=== PATIENT | male | born 1985 | race Caucasian/White ===

== ENCOUNTER 2025-01-12 19:50 | Observation (INO) | payer OTHER ==
[~2025-01-12] VITALS: Ht 175.2 cm; Wt 62.2 kg
[2025-01-12 19:50] VITALS: BP 130/87
[2025-01-12] MEDS ORDERED: ATENOLOL25 MG PO (19:58)
[2025-01-12] MEDS ORDERED: Albuterol Sulf/Ipratropium 3 ML VIAL NEB ONE (20:05)
[2025-01-12 20:09] LABS: BASO # 0.0 10*3/uL (0.0-0.1); BASO % 0.3 % (0.0-1.0); EOS # 0.1 10*3/uL (0.0-0.4); EOS % 2.0 % (1.0-4.0); MEAN CELL VOLUME 85.4 fl (80.0-94.0); MEAN CORPUSCULAR HGB 29.9 pg (27.0-31.0); MEAN PLATELET VOLUME 10.0 fl (9.6-12.3); MONO # 0.8 10*3/uL (0.1-1.0); MONO % 12.2 % (3.0-9.0); NEUT # 3.6 10*3/uL (2.3-7.9); NEUT % 52.2 % (47.0-73.0); NUCLEATED RED BLOOD CELL 0.0 % (0.0-0.0); NUCLEATED RED BLOOD CELL 0.0 10*3/uL (0.0-0.0); PLATELET COUNT AUTOMATED 259 10*3/uL (130-400); RED CELL DISTRI WIDTH 12.3 % (0-14.5)
[2025-01-12] MEDS ORDERED: Midazolam Hydrochloride 2 MG/2 ML VIAL IV ONE (20:15)
[2025-01-12 20:24] LABS: ACT PARTIAL THROMBO TIME 25.8 SECONDS (20.0-32.1)
[2025-01-12 20:31] LABS: BUN 12 mg/dl (9-23); SGPT/ALT 19 U/L (5-49)
[2025-01-12 22:20] LABS: URINE AMPHETAMINES Positive (1000ng/ml); URINE BARBITURATES Negative (200ng/ml); URINE BENZODIAZEPINES Positive (200ng/ml); URINE CANNABINOIDS (THC) Negative (50ng/ml); URINE COCAINE Negative (300ng/ml); URINE METHADONE Negative (300ng/ml); URINE OPIATES Negative (300ng/ml); URINE PHENCYCLIDINE Negative (25ng/ml)
[2025-01-12 23:12] LABS: CPK 82.0 U/L (34-171); MYOGLOBIN 32.0 ng/ml (16-116)
[2025-01-13 02:50] VITALS: BP 133/82
[2025-01-13] MEDS ORDERED: GABAPENTIN600 MG PO (02:54)
[2025-01-13] MEDS ORDERED: SUBOXONE 8 MG-1 EACH BC (02:54)
[2025-01-13] MEDS ORDERED: ATENOLOL50 M1 PO (02:54)
[2025-01-13] MEDS ORDERED: FAMOTIDINE20 M1 PO (02:55)
[2025-01-13] MEDS ORDERED: POTASSIUM CHLORIDE 20 MEQ TAB PO ONE (03:00)
[2025-01-13] MEDS ORDERED: SODIUM CHLORIDE 0.9% 1,000 ML IV ONE (03:25)
[2025-01-13] MEDS ORDERED: LORazepam 1 MG TAB PO PRN (03:30)
[2025-01-13 05:00] VITALS: BP 143/83; BP 143/85
[2025-01-13 07:10] LABS: BASO # 0.0 10*3/uL (0.0-0.1); BASO % 0.3 % (0.0-1.0); EOS # 0.1 10*3/uL (0.0-0.4); EOS % 1.9 % (1.0-4.0); MEAN CELL VOLUME 85.4 fl (80.0-94.0); MEAN CORPUSCULAR HGB 29.9 pg (27.0-31.0); MEAN PLATELET VOLUME 10.1 fl (9.6-12.3); MONO # 0.6 10*3/uL (0.1-1.0); MONO % 9.0 % (3.0-9.0); NEUT # 4.2 10*3/uL (2.3-7.9); NEUT % 60.8 % (47.0-73.0); NUCLEATED RED BLOOD CELL 0.0 % (0.0-0.0); NUCLEATED RED BLOOD CELL 0.0 10*3/uL (0.0-0.0); PLATELET COUNT AUTOMATED 227 10*3/uL (130-400); RED CELL DISTRI WIDTH 12.3 % (0-14.5)
[2025-01-13 07:40] LABS: BUN 10 mg/dl (9-23); LDL CHOLESTEROL 149 mg/dL (9-159)
[2025-01-13 08:00] VITALS: BP 136/92
== END 2025-01-13 09:17 | disposition left against medical advice (07) ==
LOC: ED 19:50 → EDHOLD 01-13 02:59 → 4E 01-13 02:59
PROVIDERS: Emergency Medicine; Student in an Organized Health Care Education/Training Program; ADMIT Student in an Organized Health Care Education/Training Program; ATTEND Student in an Organized Health Care Education/Training Program
DX: R07.89 Other chest pain (principal); R73.9 Hyperglycemia, unspecified; E87.6 Hypokalemia; Z53.29 Procedure and treatment not carried out because of patient's decision for other reasons; R00.0 Tachycardia, unspecified; R25.1 Tremor, unspecified; F11.21 Opioid dependence, in remission; F19.10 Other psychoactive substance abuse, uncomplicated; I10 Essential (primary) hypertension; Z79.899 Other long term (current) drug therapy; Z79.01 Long term (current) use of anticoagulants; Z79.2 Long term (current) use of antibiotics; Z90.49 Acquired absence of other specified parts of digestive tract; Z78.9 Other specified health status

== ENCOUNTER 2025-01-29 20:36 | Emergency (ER) | payer OTHER ==
[~2025-01-29] VITALS: Ht 175.2 cm; Wt 61.2 kg
[~2025-01-29 20:36] MED LIST: ATENOLOL25 MG PO; ATENOLOL50 M1 PO; FAMOTIDINE20 M1 PO; GABAPENTIN600 MG PO; SUBOXONE 8 MG-1 EACH BC
[2025-01-29 21:36] LABS: BASO # 0.0 10*3/uL (0.0-0.1); BASO % 0.4 % (0.0-1.0); EOS # 0.4 10*3/uL (0.0-0.4); EOS % 5.0 % (1.0-4.0); MEAN CELL VOLUME 88.9 fl (80.0-94.0); MEAN CORPUSCULAR HGB 29.9 pg (27.0-31.0); MEAN PLATELET VOLUME 10.1 fl (9.6-12.3); MONO # 0.8 10*3/uL (0.1-1.0); MONO % 11.3 % (3.0-9.0); NEUT # 3.1 10*3/uL (2.3-7.9); NEUT % 43.1 % (47.0-73.0); NUCLEATED RED BLOOD CELL 0.0 % (0.0-0.0); NUCLEATED RED BLOOD CELL 0.0 10*3/uL (0.0-0.0); PLATELET COUNT AUTOMATED 196 10*3/uL (130-400); RED CELL DISTRI WIDTH 12.3 % (0-14.5)
[2025-01-29 21:57] LABS: BUN 21 mg/dl (9-23); CPK 65 U/L (34-171)
[2025-01-29 22:13] LABS: URINE AMPHETAMINES Positive (1000ng/ml); URINE BARBITURATES Negative (200ng/ml); URINE BENZODIAZEPINES Negative (200ng/ml); URINE CANNABINOIDS (THC) Negative (50ng/ml); URINE COCAINE Negative (300ng/ml); URINE METHADONE Negative (300ng/ml); URINE OPIATES Negative (300ng/ml); URINE PHENCYCLIDINE Negative (25ng/ml)
[2025-01-29] MEDS ORDERED: ALPRAZolam 0.25 MG TAB PO ONE (22:45)
== END 2025-01-29 22:55 | disposition home or self-care (01) ==
LOC: ED 20:36
PROVIDERS: Emergency Medicine
DX: G47.00 Insomnia, unspecified (principal); I10 Essential (primary) hypertension; F32.A Depression, unspecified; F41.9 Anxiety disorder, unspecified; Z90.49 Acquired absence of other specified parts of digestive tract

== ENCOUNTER 2025-02-10 21:06 | Emergency (ER) | payer OTHER ==
[~2025-02-10] VITALS: Ht 175.2 cm; Wt 63.5 kg
[2025-02-10] MEDS ORDERED: ALPRAZOLAM0.5 M3 PO (21:14)
[2025-02-10] MEDS ORDERED: ZUBSOLV 5.7-1.1 EACH SL (21:14)
[2025-02-10] MEDS ORDERED: BACLOFEN20 M1 PO (21:15)
[2025-02-10] MEDS ORDERED: MIRTAZAPINE15 M2 PO (21:16)
[2025-02-10] MEDS ORDERED: SEROQUEL XR150 MG PO (21:16)
[2025-02-10] MEDS ORDERED: QELBREE200 MG PO (21:16)
[2025-02-10] MEDS ORDERED: BENZTROPINE ME0.5 MG PO (21:16)
[2025-02-10] MEDS ORDERED: LAMOTRIGINE100 MG PO (21:17)
[2025-02-10] MEDS ORDERED: FAMOTIDINE20 M1 PO (21:17)
[2025-02-10] MEDS ORDERED: GABAPENTIN800 MG PO (21:17)
[2025-02-10] MEDS ORDERED: SERTRALINE HYD100 MG PO (21:18)
[2025-02-10 22:11] LABS: BASO # 0.0 10*3/uL (0.0-0.1); BASO % 0.6 % (0.0-1.0); EOS # 0.5 10*3/uL (0.0-0.4); EOS % 7.0 % (1.0-4.0); MEAN CELL VOLUME 88.3 fl (80.0-94.0); MEAN CORPUSCULAR HGB 29.5 pg (27.0-31.0); MEAN PLATELET VOLUME 10.3 fl (9.6-12.3); MONO # 0.7 10*3/uL (0.1-1.0); MONO % 9.4 % (3.0-9.0); NEUT # 2.1 10*3/uL (2.3-7.9); NEUT % 29.0 % (47.0-73.0); NUCLEATED RED BLOOD CELL 0.0 % (0.0-0.0); NUCLEATED RED BLOOD CELL 0.0 10*3/uL (0.0-0.0); PLATELET COUNT AUTOMATED 195 10*3/uL (130-400); RED CELL DISTRI WIDTH 12.4 % (0-14.5)
[2025-02-10 22:24] LABS: ACT PARTIAL THROMBO TIME 24.0 SECONDS (20.0-32.1)
[2025-02-10 22:35] LABS: BUN 7 mg/dl (9-23); CPK 71 U/L (34-171); SGPT/ALT 18 U/L (5-49)
[2025-02-10] MEDS ORDERED: SODIUM CHLORIDE 0.9% 1,000 ML IV ONE (22:35)
[2025-02-10 22:39] LABS: ETHYL ALCOHOL < 3.0 mg/dl (<3)
[2025-02-11 00:31] LABS: BILIRUBIN Negative (Negative); BLOOD Negative (Negative); CLARITY Clear (Clear); COLOR Yellow (Yellow); KETONE Negative (Negative); LEUKO ESTERASE Negative (Negative); NITRITE Negative (Negative); PH 6.5 (4.5-8.0); SPECIFIC GRAVITY <= 1.005 (1.001-1.030); UROBILINOGEN 0.2 E.U./dl (0.0-1.0)
[2025-02-11 00:38] LABS: URINE AMPHETAMINES Negative (1000ng/ml); URINE BARBITURATES Negative (200ng/ml); URINE BENZODIAZEPINES Positive (200ng/ml); URINE CANNABINOIDS (THC) Negative (50ng/ml); URINE COCAINE Negative (300ng/ml); URINE METHADONE Negative (300ng/ml); URINE OPIATES Negative (300ng/ml); URINE PHENCYCLIDINE Negative (25ng/ml)
[2025-02-11 00:44] LABS: RBC 0-2 rbc/hpf (0-2); WBC 0-2 wbc/hpf (0-5)
== END 2025-02-11 09:23 | disposition home or self-care (01) ==
LOC: ED 21:06
PROVIDERS: Internal Medicine
DX: G47.00 Insomnia, unspecified (principal); F19.20 Other psychoactive substance dependence, uncomplicated; I10 Essential (primary) hypertension; Z79.899 Other long term (current) drug therapy; Z90.49 Acquired absence of other specified parts of digestive tract

== ENCOUNTER 2025-03-24 16:14 | Emergency (ER) | payer OTHER ==
[~2025-03-24] VITALS: Wt 70.3 kg
[~2025-03-24 16:14] MED LIST changes: +ALPRAZOLAM0.5 M3 PO; +BACLOFEN20 M1 PO; +BENZTROPINE ME0.5 MG PO; +GABAPENTIN800 MG PO; +LAMOTRIGINE100 MG PO; +MIRTAZAPINE15 M2 PO; +QELBREE200 MG PO; +SEROQUEL XR150 MG PO; +SERTRALINE HYD100 MG PO; +ZUBSOLV 5.7-1.1 EACH SL
[2025-03-24] MEDS ORDERED: GABAPENTIN800 MG PO (16:47)
== END 2025-03-24 16:49 | disposition home or self-care (01) ==
LOC: ED 16:14
DX: G62.9 Polyneuropathy, unspecified (principal); Z76.0 Encounter for issue of repeat prescription; Z79.899 Other long term (current) drug therapy; Z90.49 Acquired absence of other specified parts of digestive tract

== ENCOUNTER 2025-05-23 23:37 | Emergency (ER) | payer OTHER ==
[~2025-05-23] VITALS: Ht 175.2 cm; Wt 74.8 kg
[2025-05-24] MEDS ORDERED: SODIUM CHLORIDE 0.9% 1,000 ML IV ONE (02:20)
[2025-05-24] MEDS ORDERED: Bacitracin Zinc 14 GM TUBE T ONE (04:15)
== END 2025-05-24 04:19 | disposition home or self-care (01) ==
LOC: ED 23:37
DX: S02.2XXA Fracture of nasal bones, initial encounter for closed fracture (principal); S01.511A Laceration without foreign body of lip, initial encounter; R55 Syncope and collapse; I10 Essential (primary) hypertension; K21.9 Gastro-esophageal reflux disease without esophagitis; F41.9 Anxiety disorder, unspecified; F25.9 Schizoaffective disorder, unspecified; F90.9 Attention-deficit hyperactivity disorder, unspecified type; F31.9 Bipolar disorder, unspecified; Z90.49 Acquired absence of other specified parts of digestive tract; W19.XXXA Unspecified fall, initial encounter; Y93.89 Activity, other specified; Y92.89 Other specified places as the place of occurrence of the external cause; Y99.8 Other external cause status

== ENCOUNTER → 2025-06-27 | Outpatient (CLI) | payer OTHER ==
[2025-06-27 11:47] LABS: BASO # 0.0 10*3/uL (0.0-0.1); BASO % 0.7 % (0.0-1.0); EOS # 0.3 10*3/uL (0.0-0.4); EOS % 4.1 % (1.0-4.0); MEAN CELL VOLUME 86.9 fl (80.0-94.0); MEAN CORPUSCULAR HGB 30.1 pg (27.0-31.0); MEAN PLATELET VOLUME 10.3 fl (9.6-12.3); MONO # 0.6 10*3/uL (0.1-1.0); MONO % 9.9 % (3.0-9.0); NEUT # 2.4 10*3/uL (2.3-7.9); NEUT % 39.1 % (47.0-73.0); NUCLEATED RED BLOOD CELL 0.0 % (0.0-0.0); NUCLEATED RED BLOOD CELL 0.0 10*3/uL (0.0-0.0); PLATELET COUNT AUTOMATED 161 10*3/uL (130-400); RED CELL DISTRI WIDTH 12.5 % (0-14.5)
[2025-06-27 12:31] LABS: BUN 13 mg/dl (9-23); SGPT/ALT 12 U/L (5-49); T3 UPTAKE 32.4 % (22.4-36.7); THYROXINE (T4) TOTAL 5.1 ug/dl (4.5-10.9)
== END | disposition home or self-care (01) ==
LOC: LAB 11:17
DX: Z51.81 Encounter for therapeutic drug level monitoring (principal); R94.31 Abnormal electrocardiogram [ECG] [EKG]; Z79.899 Other long term (current) drug therapy